=== PATIENT | male | born 1970 | race Caucasian/White ===

== ENCOUNTER 2021-06-14 09:14 | Day surgery (SDC) | payer OTHER ==
[~2021-06-14 09:14] MED LIST: SODIUM CHLORIDE 0.9% 500 ML 500 ML IV ONE
[2021-06-14 09:47] VITALS: RESP 16; TEMP 97.5
[2021-06-14] MEDS: BENZOCAINE SPRAY 1 CAN MUCOUS MEM ONE ×2 (10:37→10:45)
[2021-06-14] MEDS ORDERED: fentaNYL (PF) 50 MCG/ML 2 ML AMP IV ONE (10:45)
[2021-06-14] MEDS ORDERED: MIDAZOLAM 2 MG/2 ML VIAL IV ONE (10:45)
--- NOTE | 2021-06-14 13:12 | ECHOT ---
TRANSESOPHAGEAL ECHOCARDIOGRAM INDICATION: TIA with an abnormal 2D echo. PROCEDURE NOTE: After obtaining informed consent, transesophageal echocardiogram is performed in left lateral position using an Omni plane probe. Local and IV sedation were obtained using 2 mg of Versed and 50 mcg of fentanyl and Xylocaine spray. The patient tolerated the procedure well without any obvious immediate complications. 2D, M-mode, color Doppler and spectral analysis was performed. The patient received moderate conscious sedation. Total sedation time was 8 minutes. FINDINGS: 1. Interatrial septum: There is evidence of jixhm-ub-aoft shunt with agitated saline contrast study. I do not see any evidence of left to right shunt. 2. Left atrium appears mildly enlarged. 3. Right atrium and right ventricle are within normal limits. 4. Left ventricle has normal size and systolic function. 5. Mitral valve shows mild mitral regurgitation. 6. Aortic valve is a 3-leaflet valve. There is no evidence of aortic stenosis or regurgitation. 7. Aortic root appears normal. 8. There is mild tricuspid regurgitation. 9. Left ventricular systolic function is normal. CONCLUSIONS: Evidence of jasuq-ix-oyju shunt with agitated saline contrast study. PLAN: This patient has had recurrent TIAs. I am going to refer him for Amplatzer device closure of the PFO. MMODL / IJN: [id number] /
[2021-06-14 13:24] VITALS: BP 141/84; PULSE 78
--- NOTE | 2021-06-15 08:34 | LTR ---
DATE OF SERVICE: 06/14/2021 Dear Paulie: I performed transesophageal echo on Andre Stnison. A detailed report is enclosed for your records. His NORMA confirms the ryzyu-kw-oscb shunt that was noted on a regular 2D echo. I am going to refer him for PFO closure. Thank you for giving me the privilege of participating in the care of this pleasant gentleman. Sincerely, TOMEKA / JAZMINEN: [id number] /
== END 2021-06-14 11:58 | disposition home or self-care (01) ==
LOC: CATHCVL 09:14
PROVIDERS: ATTEND Internal Medicine Cardiovascular Disease
DX: G45.9 Transient cerebral ischemic attack, unspecified (principal); Z20.822 Contact with and (suspected) exposure to COVID-19
CPT/HCPCS: 93312; 93320; 93325; 87635; J2250; J3010

== ENCOUNTER 2021-06-15 17:06 | Emergency (ER) | payer OTHER ==
[2021-06-15 19:11] VITALS: BP 134/99; TEMP 98.9
[2021-06-15 19:38] LABS: ALT 71 U/L (4-49); AST 48 U/L (17-59); African American GFR (CKD) >90 (>60 ml/min/1.73 sqM); Albumin 4.8 g/dL (3.5-5.0); Alkaline Phosphatase 87 U/L (38-126); Blood Urea Nitrogen 11 mg/dL (9-20); Calcium 10.5 mg/dL (8.4-10.2); Carbon Dioxide 23 mmol/L (22-30); Glucose 103 mg/dL (74-99); Non-African American GFR(CKD) >90 (>60 ml/min/1.73 sqM); Total Bilirubin 0.6 mg/dL (0.2-1.3); Total Protein 8.4 g/dL (6.3-8.2)
[2021-06-15 19:39] LABS: Anion Gap 9 mmol/L; Chloride 106 mmol/L (98-107); Potassium 4.3 mmol/L (3.5-5.1); Sodium 138 mmol/L (137-145)
[2021-06-15 20:10] LABS: Basophils # (A) 0.1 k/uL (0-0.2); Basophils % (A) 1 %; Eosinophils # (A) 0.2 k/uL (0-0.7); Eosinophils % (A) 2 %; HGB 17.9 gm/dL (13.0-17.5); Hyperchromasia Slight; Lymphocytes # (A) 2.5 k/uL (1.0-4.8); Lymphocytes % (A) 26 %; MCH 29.7 pg (25.0-35.0); MCHC 35.1 g/dL (31.0-37.0); MCV 84.5 fL (80.0-100.0); Mean Platelet Volume 7.3; Monocytes # (A) 0.6 k/uL (0-1.0); Monocytes % (A) 6 %; Neutrophils # (A) 5.8 k/uL (1.3-7.7); Neutrophils % (A) 61 %; Platelet Count 240 k/uL (150-450); RBC 6.04 m/uL (4.30-5.90); RDW 13.4 % (11.5-15.5); WBC 9.4 k/uL (3.8-10.6)
[2021-06-15] MEDS ORDERED: ONDANSETRON ODT 4 MG TAB PO STA (21:48)
--- NOTE | 2021-06-15 21:48 | ED ---
General Adult HPI - General Chief complaint: Headache Stated complaint: NORMA yesterday, shaky Time Seen by Provider: 06/15/21 21:21 Source: patient, family Mode of arrival: ambulatory Limitations: physical limitation - History of Present Illness Initial comments: 50-year-old female presents to the emergency department for evaluation of frontal headache, onset this morning. Patient states he had a NORMA yesterday and has felt shaky throughout the day today but was able to go to work. Patient states he is able to tolerate oral intake without difficulty. Denies any nausea or vomiting. States he does have a history of TIAs, but states this pain is di fferent. Patient states the headache begins in his forehead and extends to the top of his scalp and back around to his neck. Denies fever or chills. States he took some Tylenol prior to arrival with no improvement. Patient denies chest pain, shortness of breath, difficulty breathing, abdominal pain, nausea, vomiting, diarrhea, or constipation. - Related Data Home Medications Medication Instructions Recorded Confirmed Aspirin 81 mg PO DAILY 06/07/21 06/15/21 Cholecalciferol [Vitamin D3 (25 25 mcg PO DAILY 06/07/21 06/15/21 Mcg = 1000 Iu)] Multivitamins, Thera [Multivitamin 1 tab PO DAILY 06/07/21 06/15/21 (formulary)] [place]-3 Fatty Acids/Fish Oil [Fish 1 cap PO DAILY 06/07/21 06/15/21 Oil 1,000 mg Softgel] Allergies Allergy/AdvReac Type Severity Reaction Status Date / Time No Known Allergies Allergy Verified 06/15/21 23:09 Review of Systems ROS Statement: Those systems with pertinent positive or pertinent negative responses have been documented in the HPI. ROS Other: All systems not noted in ROS Statement are negative. 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 . SEE [facility] . FATTY LIVER. History of Any Multi-Drug Resistant Organisms: None Reported Past Surgical History: Heart Catheterization, Tonsillectomy Additional Past Surgical History / Comment(s): INFECTED BOWEL "POCKET", HAD OPEN SURGERY TO DRAIN INFECTION. AMPUTATION OF MIDDLE, RING, PINKY OF RIGHT HAND FROM AN WORK ACCIDENT (PRESS0. Additional Past Anesthesia/Blood Transfusion Reaction / Comment(s): WAKES UP DURING SURGERY. Past Psychological History: No Psychological Hx Reported Smoking Status: Never smoker Past Alcohol Use History: Occasional Past Drug Use History: None Reported General Exam Limitations: no limitations (Well-developed, well-nourished male in no acute distress. Initial temperature 98.9, pulse 84, respirations 18, blood pressure 134/99, pulse ox 95% on room air.) General appearance: alert, in no apparent distress Head exam: Present: atraumatic, normocephalic, normal inspection Eye exam: Present: normal appearance, PERRL, EOMI. Absent: scleral icterus, conjunctival injection, periorbital swelling ENT exam: Present: normal exam, normal oropharynx, mucous membranes moist Neck exam: Present: normal inspection, full ROM. Absent: tenderness, meningismus, lymphadenopathy Respiratory exam: Present: normal lung sounds bilaterally. Absent: respiratory distress, wheezes, rales, rhonchi, stridor Cardiovascular Exam: Present: regular rate, normal rhythm, normal heart sounds. Absent: systolic murmur, diastolic murmur, rubs, gallop, clicks GI/Abdominal exam: Present: soft, normal bowel sounds. Absent: distended, tenderness, guarding, rebound, rigid Neurological exam: Present: alert, oriented X3, CN II-XII intact, normal gait, other (No focal neuro deficit. 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 ). Absent: abnormal gait, motor sensory deficit Expanded Patient oriented to: Present: person, place, time Speech: Present: fluid speech Motor strength exam: RUE: 5, LUE: 5, RLE: 5, LLE: 5 Psychiatric exam: Present: normal affect Skin exam: Present: warm, dry, intact, normal color. Absent: rash Course Vital Signs 06/15/21 06/15/21 19:04 23:22 Temperature 98.9 F Pulse Rate 84 75 Respiratory 18 16 Rate Blood Pressure 134/99 O2 Sat by Pulse 95 95 Oximetry Medical Decision Making - Medical Decision Making This is a 50-year-old male with a history of TIAs who presents to the emergency department for treatment of headache area patient states he had a NORMA yesterday and has been struggling with a headache since. Upon exam, patient is neurologically intact with no focal deficits. Reports feeling shaky though is able to ambulate without difficulty and is well coordinated. Laboratory studies were reviewed and were unremarkable. Options for treatment were discussed, patient prefers to avoid an IV and further imaging if possible. Patient was given oral Zofran, intramuscular Benadryl and Toradol for headache discomfort. Reports improvement and readiness for discharge. He will be discharged home to follow up with his primary care provider who is very familiar with his history. Return parameters were discussed in detail. Patient verbalizes understanding and agrees with this plan. This patient's care was discussed with my attending Dr. Galdamez. - Lab Data Result diagrams: 06/15/21 19:16 06/15/21 19:16 Lab Results 06/15/21 06/15/21 Range/Units 19:16 19:16 WBC 9.4 (3.8-10.6) k/uL RBC 6.04 H (4.30-5.90) m/uL Hgb 17.9 H (13.0-17.5) gm/dL Hct 51.0 (39.0-53.0) % MCV 84.5 (80.0-100.0) fL MCH 29.7 (25.0-35.0) pg MCHC 35.1 (31.0-37.0) g/dL RDW 13.4 (11.5-15.5) % Plt Count 240 (150-450) k/uL MPV 7.3 Neutrophils % 61 % Lymphocytes % 26 % Monocytes % 6 % Eosinophils % 2 % Basophils % 1 % Neutrophils # 5.8 (1.3-7.7) k/uL Lymphocytes # 2.5 (1.0-4.8) k/uL Monocytes # 0.6 (0-1.0) k/uL Eosinophils # 0.2 (0-0.7) k/uL Basophils # 0.1 (0-0.2) k/uL Hyperchromasia Slight Sodium 138 (137-145) mmol/L Potassium 4.3 (3.5-5.1) mmol/L Chloride 106 (98-107) mmol/L Carbon Dioxide 23 (22-30) mmol/L Anion Gap 9 mmol/L BUN 11 (9-20) mg/dL Creatinine 0.86 (0.66-1.25) mg/dL Est GFR (CKD-EPI)AfAm >90 (>60 ml/min/1.73 sqM) Est GFR (CKD-EPI)NonAf >90 (>60 ml/min/1.73 sqM) Glucose 103 H (74-99) mg/dL Calcium 10.5 H (8.4-10.2) mg/dL Total Bilirubin 0.6 (0.2-1.3) mg/dL AST 48 (17-59) U/L ALT 71 H (4-49) U/L Alkaline Phosphatase 87 (38-126) U/L Total Protein 8.4 H (6.3-8.2) g/dL Albumin 4.8 (3.5-5.0) g/dL Disposition Clinical Impression: Headache Disposition: HOME SELF-CARE Condition: Stable Instructions (If sedation given, give patient instructions): Acute Headache (ED) Additional Instructions: Rest as needed. May take Tylenol or Motrin as needed for pain. Follow-up with your PCP for a recheck in the next 24-48 hours. Return to the emergency department with any new, worsening, or concerning symptoms. Is patient prescribed a controlled substance at d/c from ED?: No Referrals: Paulie Alexandra MD [Primary Care Provider] - 1-2 days Time of Disposition: 23:16
[2021-06-15] MEDS ORDERED: KETOROLAC 30 MG/ML 1 ML VIAL IM STA (21:49)
[2021-06-15] MEDS ORDERED: diphenhydrAMINE 50 MG/ML 1 ML VIAL IVP STA (21:49)
[2021-06-15] MEDS ORDERED: diphenhydrAMINE 50 MG/ML 1 ML VIAL IM STA (22:16)
[2021-06-15 23:24] VITALS: PULSE 75; RESP 16
== END 2021-06-15 23:24 | disposition home or self-care (01) ==
LOC: EC 17:06
DX: R51.9 Headache, unspecified (principal); Z79.82 Long term (current) use of aspirin
CPT/HCPCS: 36415; 80053; 85025; 99284; 96372 ×2; J1200; J1885

== ENCOUNTER 2022-12-19 13:19 | Observation (INO) | payer OTHER ==
--- NOTE | 2022-12-19 14:46 | ED ---
General Adult HPI - General Chief complaint: Chest Pain Stated complaint: SOB nausea Time Seen by Provider: 12/19/22 14:13 Source: patient Mode of arrival: ambulatory Limitations: no limitations - History of Present Illness Initial comments: Dictation was produced using [employer] dictation software. please excuse any grammatical, word or spelling errors. Chief Complaint: 52-year-old male past medical history of PFO, recently diagnosed type for cholesterolemia presents to the ER for fatigue, exertional cramping, diaphoresis History of Present Illness: She is 52-year-old male was recently diagnosed with high cholesterol. Is also told by his primary care doctor the high calcium. Patient works in the [employer] business. He was at work today trying to perform his usual activities at work. States that he felt so fatigued retrying them. He also reports lsignificant cramping throughout his whole body. Patient recently started cholesterol medications. Does report some mild chest pressure that radiates to his left jaw. The ROS documented in this emergency department record has been reviewed and confirmed by me. Those systems with pertinent positive or negative responses have been documented in the HPI. All other systems are other negative and/or noncontributory. - Related Data Home Medications Medication Instructions Recorded Confirmed [place]-3 Fatty Acids/Fish Oil [Fish 1 cap PO DAILY 06/07/21 12/19/22 Oil 1,000 mg Softgel] Multivit-Min/FA/Lycopen/Lutein 1 tab PO DAILY 12/19/22 12/19/22 [Centrum Silver Men Tablet] Rosuvastatin [Crestor] 10 mg PO HS 12/19/22 12/19/22 Topiramate [Topamax] 25 mg PO HS 12/19/22 12/19/22 Vitamin D3 350mcg 350 mcg PO DAILY 12/19/22 12/19/22 methylPREDNISolone Dose Pack See Taper PO DIRECTED 12/19/22 12/19/22 [Medrol Dose Pack] Allergies Allergy/AdvReac Type Severity Reaction Status Date / Time No Known Allergies Allergy Verified 12/19/22 15:15 Review of Systems ROS Statement: Those systems with pertinent positive or pertinent negative responses have been documented in the HPI. ROS Other: All systems not noted in ROS Statement are negative. 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 . SEE [facility] HX. FATTY LIVER. History of Any Multi-Drug Resistant Organisms: None Reported Past Surgical History: Heart Catheterization, Tonsillectomy Additional Past Surgical History / Comment(s): INFECTED BOWEL "POCKET", HAD OPEN SURGERY TO DRAIN INFECTION. AMPUTATION OF MIDDLE, RING, PINKY OF RIGHT HAND FROM AN WORK ACCIDENT (PRESS0. Additional Past Anesthesia/Blood Transfusion Reaction / Comment(s): WAKES UP DURING SURGERY. Past Psychological History: No Psychological Hx Reported Smoking Status: Never smoker Past Alcohol Use History: Occasional Past Drug Use History: None Reported General Exam - General Exam Comments Initial Comments: PHYSICAL EXAM: General Impression: Alert and oriented x3, not in acute distress HEENT: Normocephalic atraumatic, extra-ocular movements intact, pupils equal and reactive to light bilaterally, mucous membranes moist. Cardiovascular: Heart regular rate and rhythm Chest: Able to complete full sentences, no retractions, no tachypnea Abdomen: abdomen soft, non-tender, non-distended, no organomegaly Musculoskeletal: Pulses present and equal in all extremities, no peripheral edema Motor: no focal deficits noted Neurological: CN II-XII grossly intact, no focal motor or sensory deficits noted Skin: Intact with no visualized rashes Psych: Normal affect and mood Limitations: no limitations Course Vital Signs 12/19/22 12/19/22 12/19/22 13:22 14:03 15:22 Temperature 98.7 F Pulse Rate 94 98 76 Respiratory 18 20 18 Rate Blood Pressure 129/73 142/121 134/71 O2 Sat by Pulse 95 97 97 Oximetry 12/19/22 16:03 Temperature Pulse Rate 70 Respiratory 18 Rate Blood Pressure 134/91 O2 Sat by Pulse 97 Oximetry EKG Findings - EKG Comments: EKG Findings:: My EKG interpretation: Ventricular rate 95, sinus rhythm, RI 177, QRS 105, QTC 390. No RI prolongation, no QTC prolongation, no ST or T-wave changes noted. Overall, this EKG is unremarkable Medical Decision Making - Medical Decision Making Was pt. sent in by a medical professional or institution (, PA, CERAMIC TILER, urgent care, hospital, or jail...) When possible be specific @ -No Did you speak to anyone other than the patient for history (EMS, parent, family, police, friend...)? What history was obtained from this source @ - at the bedside reports that patient has not been himself his exercise tolerance has diminished significantly over a short amount Did you review nursing and triage notes (agree or disagree)? Why? @ -I reviewed and agree with nursing and triage notes Were old charts reviewed (outside hosp., previous admission, EMS record, old EKG, old radiological studies, urgent care reports/EKG's, jail records)? Report findings @ -Patient had a NORMA performed to 2020 showing patent foramen ovale. At that time there was overall normal systolic function Differential Diagnosis (chest pain, altered mental status, abdominal pain women, abdominal pain men, vaginal bleeding, musculoskeletal, weakness, fever, dyspnea, syncope, headache, dizziness, GI bleed, back pain, seizure, CVA, palpatations, mental health)? @ -Differential Chest Pain: Stable Angina, Unstable Angina, STEMI, NSTEMI Aortic Dissection, Pneumothorax, Musculoskeletal, Esophageal Spasm GERD, Cholecystitis, Pancreatitis, Zoster, this is not meant to be an all-inclusive list. EKG interpreted by me (3pts min.). @ -See above X-rays interpreted by me (1pt min.). @ -Two-view chest x-ray shows no acute processes CT interpreted by me (1pt min.). @ -None done U/S interpreted by me (1pt. min.). @ -None done What testing was considered but not performed or refused? (CT, X-rays, U/S, labs)? Why? @ -None What meds were considered but not given or refused? Why? @ -None Did you discuss the management of the patient with other professionals (professionals i.e. , PA, CERAMIC TILER, lab, RT, psych nurse, child protective services social worker, contract writer, teacher, science and operations officer, nurse case management)? Give summary @ -Labs imaging clinical presentation discussed with Dr. Brennan for admission Was smoking cessation discussed for >3mins.? @ -No Was critical care preformed (if so, how long)? @ -No Were there social determinants of health that impacted care today? How? (Homelessness, low income, unemployed, alcoholism, drug addiction, transportation, low edu. Level, literacy, decrease access to med. care, skilled nursing, rehab)? @ -No Was there de-escalation of care discussed even if they declined (Discuss DNR or withdrawal of care, Hospice)? DNR status @ -No What co-morbidities impacted this encounter? (DM, HTN, Smoking, COPD, CAD, Cancer, CVA, ARF, Chemo, Hep., AIDS, mental health diagnosis, sleep apnea, morbid obesity)? @ -None Was patient admitted / discharged? Hospital course, mention meds given and route, prescriptions, significant lab abnormalities, going to OR and other pertinent info. @ -52-year-old male presents emergency department with chest pressure, poor exercise intolerance and overall worsening fatigue. He has extensive family history of cardiac disease. Vital signs are stable. EKG shows no signs of ischemia infarction. Labs shows acidosis with a bicarb of 17. No clear and obvious cause. Rest of labs within acceptable limits. Patient has atypical chest pain typical features. Patient given IV fluids will be admitted for cardiac monitoring further care. She given IV hydration. Undiagnosed new problem with uncertain prognosis? @ -No Drug Therapy requiring intensive monitoring for toxicity (Heparin, Nitro, Insulin, Cardizem)? @ -No Were any procedures done? @ -No Diagnosis/symptom? Acute, or Chronic, or Acute on Chronic? Uncomplicated (without systemic symptoms) or Complicated (systemic symptoms)? @ -1. Chest pain, 2. Exertional fatigue Side effects of treatment? @ -No Exacerbation, Progression, or Severe Exacerbation? @ -No Poses a threat to life or bodily function? How? (Chest pain, USA, AL, pneumonia, PE, COPD, DKA, ARF, appy, cholecystitis, CVA, Diverticulitis, Homicidal, Suicidal, threat to staff... and all critical care pts) @ -yes - Lab Data Result diagrams: 12/19/22 14:55 12/19/22 14:55 Lab Results 12/19/22 12/19/22 12/19/22 Range/Units 14:55 14:55 14:55 WBC 7.8 (3.8-10.6) k/uL RBC 5.95 H (4.30-5.90) m/uL Hgb 17.3 (13.0-17.5) gm/dL Hct 50.5 (39.0-53.0) % MCV 84.8 (80.0-100.0) fL MCH 29.2 (25.0-35.0) pg MCHC 34.4 (31.0-37.0) g/dL RDW 12.8 (11.5-15.5) % Plt Count 261 (150-450) k/uL MPV 8.0 Neutrophils % 88 % Lymphocytes % 8 % Monocytes % 3 % Eosinophils % 0 % Basophils % 0 % Neutrophils # 6.8 (1.3-7.7) k/uL Lymphocytes # 0.6 L (1.0-4.8) k/uL Monocytes # 0.3 (0-1.0) k/uL Eosinophils # 0.0 (0-0.7) k/uL Basophils # 0.0 (0-0.2) k/uL PT 10.4 (9.0-12.0) sec INR 1.0 (<1.2) APTT 24.5 (22.0-30.0) sec Sodium 140 (137-145) mmol/L Potassium 4.5 (3.5-5.1) mmol/L Chloride 108 H (98-107) mmol/L Carbon Dioxide 17 L (22-30) mmol/L Anion Gap 15 mmol/L BUN 11 (9-20) mg/dL Creatinine 0.84 (0.66-1.25) mg/dL Est GFR (CKD-EPI)AfAm >90 (>60 ml/min/1.73 sqM) Est GFR (CKD-EPI)NonAf >90 (>60 ml/min/1.73 sqM) Glucose 121 H (74-99) mg/dL Calcium 10.1 (8.4-10.2) mg/dL Ionized Calcium Irina 5.4 H (4.5-5.3) mg/dL Magnesium 2.2 (1.6-2.3) mg/dL Total Bilirubin 1.2 (0.2-1.3) mg/dL AST 38 (17-59) U/L ALT 42 (4-49) U/L Alkaline Phosphatase 110 (38-126) U/L Creatine Kinase 197 H (55-170) U/L Troponin I (0.000-0.034) ng/mL Total Protein 8.6 H (6.3-8.2) g/dL Albumin 4.9 (3.5-5.0) g/dL 12/19/22 Range/Units 14:55 WBC (3.8-10.6) k/uL RBC (4.30-5.90) m/uL Hgb (13.0-17.5) gm/dL Hct (39.0-53.0) % MCV (80.0-100.0) fL MCH (25.0-35.0) pg MCHC (31.0-37.0) g/dL RDW (11.5-15.5) % Plt Count (150-450) k/uL MPV Neutrophils % % Lymphocytes % % Monocytes % % Eosinophils % % Basophils % % Neutrophils # (1.3-7.7) k/uL Lymphocytes # (1.0-4.8) k/uL Monocytes # (0-1.0) k/uL Eosinophils # (0-0.7) k/uL Basophils # (0-0.2) k/uL PT (9.0-12.0) sec INR (<1.2) APTT (22.0-30.0) sec Sodium (137-145) mmol/L Potassium (3.5-5.1) mmol/L Chloride (98-107) mmol/L Carbon Dioxide (22-30) mmol/L Anion Gap mmol/L BUN (9-20) mg/dL Creatinine (0.66-1.25) mg/dL Est GFR (CKD-EPI)AfAm (>60 ml/min/1.73 sqM) Est GFR (CKD-EPI)NonAf (>60 ml/min/1.73 sqM) Glucose (74-99) mg/dL Calcium (8.4-10.2) mg/dL Ionized Calcium Irina (4.5-5.3) mg/dL Magnesium (1.6-2.3) mg/dL Total Bilirubin (0.2-1.3) mg/dL AST (17-59) U/L ALT (4-49) U/L Alkaline Phosphatase (38-126) U/L Creatine Kinase (55-170) U/L Troponin I <0.012 (0.000-0.034) ng/mL Total Protein (6.3-8.2) g/dL Albumin (3.5-5.0) g/dL Disposition Clinical Impression: Chest pain Disposition: ADMITTED IP TO THIS HOSP Condition: Fair Referrals: Paulie Alexandra MD [Primary Care Provider] - 1-2 days Decision Time: 16:05
[2022-12-19] MEDS: SODIUM CHLORIDE 0.9% 1,000 ML IV STA ×2 (14:52→15:20)
--- NOTE | 2022-12-19 15:07 | XR ---
EXAMINATION TYPE: XR chest 2V DATE OF EXAM: 12/19/2022 3:00 PM COMPARISON: None TECHNIQUE: XR chest 2V Frontal and lateral views of the chest. CLINICAL INDICATION:Male, 52 years old with history of Chest Pain; FINDINGS: Lungs/Pleura: There is no evidence of pleural effusion, focal consolidation, or pneumothorax. Pulmonary vascularity: Unremarkable. Heart/mediastinum: Cardiomediastinal silhouette is unremarkable. Musculoskeletal: No acute osseous pathology. IMPRESSION: No acute cardiopulmonary disease/process.
[2022-12-19] MEDS ORDERED: KETOROLAC 15 MG/ML 1 ML VIAL IVP STA (15:16)
[2022-12-19] MEDS ORDERED: SODIUM CHLORIDE 0.9% 1,000 ML IV STA (15:16)
[2022-12-19 15:25] LABS: Basophils % (A) 0 %; Eosinophils % (A) 0 %; HCT 50.5 % (39.0-53.0); HGB 17.3 gm/dL (13.0-17.5); Ionized Calcium 5.4 mg/dL (4.5-5.3); Lymphocytes # (A) 0.6 k/uL (1.0-4.8); Lymphocytes % (A) 8 %; MCH 29.2 pg (25.0-35.0); MCHC 34.4 g/dL (31.0-37.0); MCV 84.8 fL (80.0-100.0); Monocytes # (A) 0.3 k/uL (0-1.0); Monocytes % (A) 3 %; Neutrophils # (A) 6.8 k/uL (1.3-7.7); Neutrophils % (A) 88 %; Platelet Count 261 k/uL (150-450); RBC 5.95 m/uL (4.30-5.90); RDW 12.8 % (11.5-15.5); WBC 7.8 k/uL (3.8-10.6)
[2022-12-19 15:38] LABS: Partial Thromboplastin Time 24.5 sec (22.0-30.0); Prothrombin Time 10.4 sec (9.0-12.0)
[2022-12-19 15:40] LABS: ALT 42 U/L (4-49); AST 38 U/L (17-59); African American GFR (CKD) >90 (>60 ml/min/1.73 sqM); Albumin 4.9 g/dL (3.5-5.0); Alkaline Phosphatase 110 U/L (38-126); Anion Gap 15 mmol/L; Blood Urea Nitrogen 11 mg/dL (9-20); Calcium 10.1 mg/dL (8.4-10.2); Carbon Dioxide 17 mmol/L (22-30); Chloride 108 mmol/L (98-107); Creatine Kinase 197 U/L (55-170); Glucose 121 mg/dL (74-99); Magnesium 2.2 mg/dL (1.6-2.3); Non-African American GFR(CKD) >90 (>60 ml/min/1.73 sqM); Potassium 4.5 mmol/L (3.5-5.1); Sodium 140 mmol/L (137-145); Total Bilirubin 1.2 mg/dL (0.2-1.3); Total Protein 8.6 g/dL (6.3-8.2)
[2022-12-19] MEDS ORDERED: ASPIRIN 81 MG PO STA (16:01)
[2022-12-19] MEDS ORDERED: NITROGLYCERIN SL TABS 0.4 MG TAB SUBLINGUAL PRN (16:05)
[2022-12-19] MEDS ORDERED: NALOXONE 0.4 MG/ML 1 ML VIAL IV PRN (17:05)
[2022-12-19] MEDS ORDERED: MELATONIN 3 MG TABLET PO PRN (17:10)
[2022-12-19] MEDS ORDERED: bisacodyL 5 MG TABLET.DR PO PRN (17:10)
[2022-12-19] MEDS ORDERED: ACETAMINOPHEN TAB 325 MG TAB PO PRN (17:10)
[2022-12-19] MEDS ORDERED: ONDANSETRON 4 MG/2 ML VIAL IVP PRN (17:10)
[2022-12-19] MEDS ORDERED: CALCIUM CARBONATE 500 MG CHEWABLE PO PRN (17:10)
--- NOTE | 2022-12-19 17:17 | P.HPIM ---
History of Present Illness H&P Date: 12/19/22 Chief Complaint: chest pain Patient is a 52-year-old male with a history of prior TIA, PFO, and steatohepatitis who presented to the ER with complaints of shortness of breath and fatigue. On arrival to the ER his vitals are within normal limits. Laboratory analysis was remarkable for carbon dioxide of 17 and anion gap of 15. Troponin was negative at less than 0.012. Chest x-ray is read as no acute process. EKG revealed no signs of acute ischemia. In the ER he was given a dose of Toradol, 2 L normal saline, and aspirin. Arrangements are made for admission. Patient was recently diagnosied by his PCP with high cholesterol and high calcium levels. Patient seen and examined at bedside. Has not felt right the last few months- fatigue and aches and pains. Has lost 11 pounds in the last month due to decreased appetite. Saw Dr. Parisi on Monday and with his calcium being high they wanted him to see if there was calcium around his heart.He was recently started on crestor last week. Today at work started having pain in cramping left shoulder pain at 6-8 that radiated to the jaw, increased fatigue, SOB, diaphoresis, vomited X 1 at work. Did not eat much at work. Works a physically active job. Last few days increased thirst. He has had this shoulder/chest discomfort intermittently for the last 8 months however today was much worse. Has been having lower extremity edema for the last 3-4 months. Neck circumference is 19.5. Complaining of a headache today. Had an episode of presyncope about 2-3 weeks ago-- tunneled vision, light headed. Had NORMA done on 06/14/21 which showed PFO with no left to right shunt. Has seen Dr. Mirza and Derick in the past. No hx of tobacco abuse, social drinker, no history of street drug use. Had a heart cath> 10 years ago at [facility]. Family Hx Mom- Heart Failure Dad- ND X 5-6, ablation- first ND at age 41. , pacer/ defibrillator Grandfather- CABG Vital signs reviewed General: nontoxic, no distress, appears at stated age Derm: warm, dry Eyes: EOMI, no lid lag, anicteric sclera, pupils equal round reactive to light ENT: Nose and ears atraumatic, no thrush, no pharyngeal erythema Cardiovascular: S1S2 reg, no murmur, positive posterior tibial pulse bilateral, 1+ non pitting edema b/l LE, capillary refill less than 2 seconds Lungs: clear to auscultation bilateral, no rhonchi, no rales, no wheeze, no accessory muscle use Abdominal: soft, nontender to palpation, no guarding, no appreciable organomegaly, normal bowel sounds Ext: no gross muscle atrophy, , no contractures Neuro: CN II-XII grossly intact, no focal neuro deficits, finger to nose within normal limits, Psych: Alert, oriented, appropriate affect Assessment: Chest pain Fatigue PFO without right to left shunt Hypercalcemia Metabolic acidosis HLD Imaging: Chest x-ray reviewed by myself shows increased interstitial markings EKG is reviewed by myself reveals normal sinus rhythm at a rate of 95, left axis deviation, LVH, normal intervals, and no significant ST-T wave changes Data Review: As above in HPI Plan: - place in observation - Trend troponin - ASA, Statin - if another episode of chest pain or elevated troponin will need heparin gtt - Resume topamax - Cardio consult - NPO after midnight - Tele - Echo in AM - Repeat BMP and ionized calcium in AM - if cardiac work-up is negative consider outpatient sleep study and pulmonary referal. The patient is admitted with an anticipated greater than 2 midnight stay for evaluation of [chest pain and fatigue ]. Surrogate decision-maker: CODE STATUS:full DVT prophylaxis: SCDs Discussed with: patient Anticipated discharge date: pending clinical course Anticipated discharge place: home This dictation was prepared using [employer] voice recognition software. Though every attempt is made to correct errors during during dictation some may still exist. Past Medical History Past Medical History: CVA/TIA Additional Past Medical History / Comment(s): PFO, TIA in his 30s, Splenomegally. FATTY LIVER. History of Any Multi-Drug Resistant Organisms: None Reported Past Surgical History: Heart Catheterization, Tonsillectomy Additional Past Surgical History / Comment(s): INFECTED BOWEL "POCKET", HAD OPEN SURGERY TO DRAIN INFECTION. AMPUTATION OF MIDDLE, RING, PINKY OF RIGHT HAND FROM AN WORK ACCIDENT, NORMA Additional Past Anesthesia/Blood Transfusion Reaction / Comment(s): WAKES UP DURING SURGERY. Past Psychological History: No Psychological Hx Reported Smoking Status: Never smoker Past Alcohol Use History: Occasional Past Drug Use History: None Reported Medications and Allergies Home Medications Medication Instructions Recorded Confirmed Type [place]-3 Fatty Acids/Fish Oil [Fish 1 cap PO DAILY 06/07/21 12/19/22 History Oil 1,000 mg Softgel] Multivit-Min/FA/Lycopen/Lutein 1 tab PO DAILY 12/19/22 12/19/22 History [Centrum Silver Men Tablet] Rosuvastatin [Crestor] 10 mg PO HS 12/19/22 12/19/22 History Topiramate [Topamax] 25 mg PO HS 12/19/22 12/19/22 History Vitamin D3 350mcg 350 mcg PO DAILY 12/19/22 12/19/22 History methylPREDNISolone Dose Pack See Taper PO DIRECTED 12/19/22 12/19/22 History [Medrol Dose Pack] Allergies Allergy/AdvReac Type Severity Reaction Status Date / Time No Known Allergies Allergy Verified 12/19/22 15:15 Physical Exam Osteopathic Statement: *. No significant issues noted on an osteopathic structural exam other than those noted in the History and Physical/Consult. Vitals: Vital Signs Temp Pulse Resp BP Pulse Ox 12/19/22 16:03 70 18 134/91 97 12/19/22 15:22 76 18 134/71 97 12/19/22 14:03 98 20 142/121 97 12/19/22 13:22 98.7 F 94 18 129/73 95 Intake and Output 12/19/22 12/19/22 12/19/22 06:59 14:59 22:59 Other: Weight 108.862 kg Results CBC & Chem 7: 12/19/22 14:55 12/19/22 14:55 Labs: Abnormal Lab Results - Last 24 Hours (Table) 12/19/22 12/19/22 Range/Units 14:55 14:55 RBC 5.95 H (4.30-5.90) m/uL Lymphocytes # 0.6 L (1.0-4.8) k/uL Chloride 108 H (98-107) mmol/L Carbon Dioxide 17 L (22-30) mmol/L Glucose 121 H (74-99) mg/dL Ionized Calcium Irina 5.4 H (4.5-5.3) mg/dL Creatine Kinase 197 H (55-170) U/L Total Protein 8.6 H (6.3-8.2) g/dL
[2022-12-19] MEDS: SODIUM CHLORIDE 0.9% 1,000 ML IV SCH (18:31)
[2022-12-19] MEDS ORDERED: KETOROLAC 15 MG/ML 1 ML VIAL IVP PRN (18:42)
[2022-12-19] MEDS: BUTALB/APAP/CAFF 50-325-40MG TAB PO PRN (19:10)
[2022-12-19] MEDS: TOPIRAMATE 25 MG TAB PO SCH (20:08)
[2022-12-19] MEDS: ATORVASTATIN 20 MG TAB PO SCH (20:08)
[2022-12-20] MEDS: SODIUM CHLORIDE 0.9% 1,000 ML IV SCH ×3 (02:14→23:01)
[2022-12-20 07:26] LABS: Basophils % (A) 1 %; Eosinophils # (A) 0.2 k/uL (0-0.7); Eosinophils % (A) 2 %; HCT 45.9 % (39.0-53.0); HGB 15.5 gm/dL (13.0-17.5); Lymphocytes # (A) 1.7 k/uL (1.0-4.8); Lymphocytes % (A) 24 %; MCH 28.9 pg (25.0-35.0); MCHC 33.7 g/dL (31.0-37.0); MCV 85.7 fL (80.0-100.0); Mean Platelet Volume 7.4; Monocytes # (A) 0.7 k/uL (0-1.0); Monocytes % (A) 9 %; Neutrophils # (A) 4.6 k/uL (1.3-7.7); Neutrophils % (A) 63 %; Platelet Count 219 k/uL (150-450); RBC 5.35 m/uL (4.30-5.90); RDW 13.1 % (11.5-15.5); WBC 7.3 k/uL (3.8-10.6)
--- NOTE | 2022-12-20 07:42 | P.CRDCN ---
History of Present Illness Consult date: 12/20/22 Chief complaint: chest pain History of present illness: The patient is a very pleasant 52-year-old gentleman with a past medical history significant for history of TIA as well as dyslipidemia presented to the hospital complaining of chest discomfort. He describes discomfort in the left upper chest as well as the jaw. The discomfort appeared to be nonexertional. Beside that he has been more short of breath recently. No dizziness or lightheadedness and no feeling of heart racing or fluttering and no presyncope or syncope. No history of ischemic heart disease or prior revascularization. He does have severe dyslipidemia and he also was diagnosed with TIA before. He underwent further cardiac workup including EKG showing sinus mechanism was no significant ST or T-wave abnormalities and also he underwent a blood work including troponin came in to be unremarkable. He is known to have also a patent foramen ovale was treated medically and he has done well since then. The chest x-ray showed no acute abnormalities The examination is remarkable for stable vital signs with regular rhythm and clear breathing sounds bilaterally and no carotid bruit and no lower extremity edema noted Assessment Atypical chest discomfort History of TIA Dyslipidemia Plan Acute coronary event was ruled out Continue the current medical regimen Obtain a stress test to rule out severe CAD given his multiple risk factors Follow-up with the patient Past Medical History Past Medical History: CVA/TIA Additional Past Medical History / Comment(s): PFO, TIA in his 30s, Splenomegally. FATTY LIVER. History of Any Multi-Drug Resistant Organisms: None Reported Past Surgical History: Heart Catheterization, Tonsillectomy Additional Past Surgical History / Comment(s): INFECTED BOWEL "POCKET", HAD OPEN SURGERY TO DRAIN INFECTION. AMPUTATION OF MIDDLE, RING, PINKY OF RIGHT HAND FROM AN WORK ACCIDENT, NORMA Additional Past Anesthesia/Blood Transfusion Reaction / Comment(s): WAKES UP DURING SURGERY. Past Psychological History: No Psychological Hx Reported Smoking Status: Never smoker Past Alcohol Use History: Occasional Past Drug Use History: None Reported Medications and Allergies Home Medications Medication Instructions Recorded Confirmed Type [place]-3 Fatty Acids/Fish Oil [Fish 1 cap PO DAILY 06/07/21 12/19/22 History Oil 1,000 mg Softgel] Multivit-Min/FA/Lycopen/Lutein 1 tab PO DAILY 12/19/22 12/19/22 History [Centrum Silver Men Tablet] Rosuvastatin [Crestor] 10 mg PO HS 12/19/22 12/19/22 History Topiramate [Topamax] 25 mg PO HS 12/19/22 12/19/22 History Vitamin D3 350mcg 350 mcg PO DAILY 12/19/22 12/19/22 History methylPREDNISolone Dose Pack See Taper PO DIRECTED 12/19/22 12/19/22 History [Medrol Dose Pack] Allergies Allergy/AdvReac Type Severity Reaction Status Date / Time No Known Allergies Allergy Verified 12/19/22 15:15 Physical Exam Vitals: Vital Signs Temp Pulse Pulse Resp BP BP Pulse Ox 12/20/22 02:00 98.1 F 67 13 141/79 98 12/19/22 21:00 97.6 F 61 18 149/90 97 12/19/22 20:50 18 12/19/22 20:23 98.5 F 12/19/22 20:10 63 18 120/85 97 12/19/22 17:48 65 18 136/86 99 12/19/22 16:03 70 18 134/91 97 12/19/22 15:22 76 18 134/71 97 12/19/22 14:03 98 20 142/121 97 12/19/22 13:22 98.7 F 94 18 129/73 95 Intake and Output 12/19/22 12/20/22 12/20/22 22:59 06:59 14:59 Output Total 0 Balance 0 Output: Emesis 0 Other: # Voids 1 Weight 108.862 kg Results 12/20/22 06:55 12/19/22 14:55 Cardiac Enzymes 12/19/22 12/19/22 12/19/22 Range/Units 14:55 14:55 17:50 AST 38 (17-59) U/L Troponin I <0.012 <0.012 (0.000-0.034) ng/mL 12/19/22 Range/Units 20:51 AST (17-59) U/L Troponin I <0.012 (0.000-0.034) ng/mL Coagulation 12/19/22 Range/Units 14:55 PT 10.4 (9.0-12.0) sec APTT 24.5 (22.0-30.0) sec CBC 12/19/22 12/20/22 Range/Units 14:55 06:55 WBC 7.8 7.3 (3.8-10.6) k/uL RBC 5.95 H 5.35 (4.30-5.90) m/uL Hgb 17.3 15.5 (13.0-17.5) gm/dL Hct 50.5 45.9 (39.0-53.0) % Plt Count 261 219 (150-450) k/uL Comprehensive Metabolic Panel 12/19/22 Range/Units 14:55 Sodium 140 (137-145) mmol/L Potassium 4.5 (3.5-5.1) mmol/L Chloride 108 H (98-107) mmol/L Carbon Dioxide 17 L (22-30) mmol/L BUN 11 (9-20) mg/dL Creatinine 0.84 (0.66-1.25) mg/dL Glucose 121 H (74-99) mg/dL Calcium 10.1 (8.4-10.2) mg/dL AST 38 (17-59) U/L ALT 42 (4-49) U/L Alkaline Phosphatase 110 (38-126) U/L Total Protein 8.6 H (6.3-8.2) g/dL Albumin 4.9 (3.5-5.0) g/dL Current Medications Generic Name Dose Route Start Last Admin Trade Name Freq PRN Reason Stop Dose Admin Acetaminophen 650 mg 12/19/22 17:10 Acetaminophen Tab 325 Mg Tab PO Q6HR PRN Mild Pain or Fever > 100.5 Acetaminophen/Butalbital/Caffeine 1 each 12/19/22 18:41 12/19/22 19:10 Butalb/Apap/Caff 50-325-40mg Tab PO 1 each Q6H PRN Administration Headache Aspirin 325 mg 12/20/22 09:00 Aspirin 325 Mg Tab PO DAILY REKHA Atorvastatin Calcium 20 mg 12/19/22 21:00 12/19/22 20:08 Atorvastatin 20 Mg Tab PO 20 mg HS REKHA Administration Bisacodyl 5 mg 12/19/22 17:10 Bisacodyl 5 Mg Tablet.Dr PO DAILY PRN Constipation Calcium Carbonate/Glycine 1,000 mg 12/19/22 17:10 Calcium Carbonate 500 Mg Chewable PO Q4HR PRN Dyspepsia Sodium Chloride 1,000 mls @ 100 mls/hr 12/19/22 17:15 12/20/22 02:14 Saline 0.9% IV 100 mls/hr .Q10H REKHA Administration Ketorolac Tromethamine 15 mg 12/19/22 18:42 Ketorolac 15 Mg/Ml 1 Ml Vial IVP 12/24/22 18:42 Q6HR PRN Breakthrough Pain Melatonin 3 mg 12/19/22 17:10 Melatonin 3 Mg Tablet PO HS PRN Insomnia Naloxone HCl 0.2 mg 12/19/22 17:05 Naloxone 0.4 Mg/Ml 1 Ml Vial IV Q2M PRN Opioid Reversal Nitroglycerin 0.4 mg 12/19/22 16:05 Nitroglycerin Sl Tabs 0.4 Mg Tab SUBLINGUAL Q5M PRN Chest Pain Ondansetron HCl 4 mg 12/19/22 17:10 Ondansetron 4 Mg/2 Ml Vial IVP Q8HR PRN Nausea And Vomiting Topiramate 25 mg 12/19/22 21:00 12/19/22 20:08 Topiramate 25 Mg Tab PO 25 mg HS REKHA Administration Intake and Output 12/19/22 12/20/22 12/20/22 22:59 06:59 14:59 Output Total 0 Balance 0 Output: Emesis 0 Other: # Voids 1 Weight 108.862 kg 12/20/22 06:55 12/19/22 14:55
[2022-12-20 07:43] LABS: African American GFR (CKD) >90 (>60 ml/min/1.73 sqM); Anion Gap 6 mmol/L; Blood Urea Nitrogen 12 mg/dL (9-20); Calcium 8.7 mg/dL (8.4-10.2); Carbon Dioxide 23 mmol/L (22-30); Chloride 111 mmol/L (98-107); Glucose 96 mg/dL (74-99); Non-African American GFR(CKD) >90 (>60 ml/min/1.73 sqM); Potassium 3.9 mmol/L (3.5-5.1); Sodium 140 mmol/L (137-145)
[2022-12-20 08:58] LABS: Ionized Calcium 5.3 mg/dL (4.5-5.3)
[2022-12-20] MEDS ORDERED: NON FORMULARY DRUG (Omega-3 Fatty Acids/Fish Oil [Fish Oil 1,000 Mg Softgel] 1 EACH Capsul PO SCH (09:00)
[2022-12-20] MEDS ORDERED: ASPIRIN 325 MG TAB PO SCH (09:00)
--- NOTE | 2022-12-20 10:37 | CA ---
Transthoracic Echo Report Name: Andre Stinson Age: 52 Gender: M : 1970 Exam Date: 12/20/2022 07:42 Exam Location: [facility] Ht (in): 71 Wt (lb): 240 Ordering Physician: Nicolette Keith DO Attending/Referring Phys: [id number], [employer]ist Ansley Jones RDCS Procedure CPT: Indications: chf Cardiac Hx: Technical Quality: Fair Contrast 1: Total Dose (mL): Contrast 2: Total Dose (mL): MEASUREMENTS (Male / Female) Normal Values 2D ECHO LV Diastolic Diameter PLAX 4.3 cm 4.2 - 5.9 / 3.9 - 5.3 cm LV Systolic Diameter PLAX 3.0 cm IVS Diastolic Thickness 1.5 cm 0.6 - 1.0 / 0.6 - 0.9 cm LVPW Diastolic Thickness 1.3 cm 0.6 - 1.0 / 0.6 - 0.9 cm LV Relative Wall Thickness 0.6 RV Internal Dim ED PLAX 4.1 cm LA Volume 89.9 cm??? 18 - 58 / 22 - 52 cm??? M-MODE Aortic Root Diameter MM 3.8 cm LA Systolic Diameter MM 2.8 cm LA Ao Ratio MM 0.7 AV Cusp Separation MM 2.3 cm DOPPLER AV Peak Velocity 126.1 cm/s AV Peak Gradient 6.4 mmHg AV Mean Velocity 97.2 cm/s AV Mean Gradient 4.0 mmHg AV Velocity Time Integral 25.9 cm LVOT Peak Velocity 110.0 cm/s LVOT Peak Gradient 4.8 mmHg LVOT Velocity Time Integral 21.5 cm MV Area PHT 2.9 cm??? Mitral E Point Velocity 63.5 cm/s Mitral A Point Velocity 73.4 cm/s Mitral E to A Ratio 0.9 MV Deceleration Time 258.8 ms MV E' Velocity 6.4 cm/s Mitral E to MV E' Ratio 9.9 TR Peak Velocity 256.3 cm/s TR Peak Gradient 26.3 mmHg Right Ventricular Systolic Press 29.4 mmHg FINDINGS Left Ventricle Moderatly increased left ventricular wall thickness. Left ventricular cavity size normal. Normal left ventricular systolic function with no obvious regional wall motion abnormalities. Left ventricular ejection fraction is estimated at 55-60 %. Right Ventricle Moderate right ventricular dilatation. Right ventricular systolic pressure within normal limits. Right Atrium Mild right atrial dilatation. Left Atrium Severly increased left atrial volume. Mildly increased left atrial area. Patent foramen ovale present . Mitral Valve Structurally normal mitral valve. No mitral stenosis. Mild mitral regurgitation. Aortic Valve Trileaflet aortic valve. No aortic valve stenosis or regurgitation. Tricuspid Valve Structurally normal tricuspid valve. Mild tricuspid regurgitation. Pulmonic Valve Trace pulmonic regurgitation. Pericardium No pericardial effusion. Aorta Normal size aortic root and proximal ascending aorta. CONCLUSIONS Normal LV systolic function Mild mitral regurgitation Previewed by: Dr. Lex Sepulveda MD (Electronically Signed) Final Date: 20 December 2022 10:36
[2022-12-20 11:06] LABS: Chol/HDL Ratio 5.82 Ratio; LDL Cholesterol,Calculated 131.8 mg/dL
--- NOTE | 2022-12-20 13:02 | CA ---
Exercise Stress Test Report Name: Andre Stinson Exam Date: 12/20/2022 09:48 Exam Location: [facility] Ht (in): 71 Wt (lb): 240 BSA: 2.28 Ordering Phys: Lex Sepulveda MD Referring Phys: HALEIGH,, Technologist: Chavez Flores Age: 52 Gender: M : 1970 Procedure CPT: Indications: CP ICD-10 Codes: Patient History: Chest pain Medications: Meds past 24 hrs: Pretest Chest Pain: STRESS TEST Geronimo Protocol Exercise Duration (min:sec): 09:[address] Depressions (mm): Angina Score: Russ Score: Resting HR (bpm): 62 Peak HR (bpm): 144 Resting BP (mmHg): 129 / 99 Peak BP (mmHg): 189 / 113 MPHR: 168 Target HR: 143 % MPHR: 86 METS: 11.1 Total Dose: Peak Dose: Atropine: Double Product: 01636 BP Response: Stress Termination: Reached target heart rate Stress Symptoms: Dyspnea, Syncope Stress Summary: ECG ANALYSIS Resting ECG: Stress ECG: CONCLUSIONS Good exercise tolerance Normal EKG in response to exercise Dr. Lex Sepulveda MD (Electronically Signed) Final Date: 20 December 2022 13:01
--- NOTE | 2022-12-20 14:25 | P.PN ---
Subjective Progress Note Date: 12/20/22 Patient is a 52-year-old male with a history of prior TIA, PFO, and steatohepatitis who presented to the ER with complaints of shortness of breath and fatigue. On arrival to the ER his vitals are within normal limits. Laboratory analysis was remarkable for carbon dioxide of 17 and anion gap of 15. Troponin was negative at less than 0.012. Chest x-ray is read as no acute process. EKG revealed no signs of acute ischemia. In the ER he was given a dose of Toradol, 2 L normal saline, and aspirin. Arrangements were made for admission. His troponins remained negative. He had no signs of significant arrhythmia on telemetry. He was seen by cardiology and underwent an exercise st ress test where he did have some symptoms but had good exercise capacity with no significant ST-T wave changes. He underwent echocardiogram which showed ejection fraction 55-60% with mild mitral regurgitation. After 2 L of IV fluid his ionized calcium was 5.3. Patient seen and examined at bedside. He reports not feeling well after his stress test. He states he initially exercise well but at the end of his stress test got very diaphoretic and lightheaded, he had shortness of breath. He then felt very nauseated requiring a dose of Zofran. Since returning from stress test he has had overwhelming fatigue and inability to stay awake. Vital signs reviewed General: nontoxic, ill-appearing, diaphoretic appears at stated age Cardiovascular: S1S2 reg, no murmur, positive posterior tibial pulse bilateral, Lungs: CTA bilateral, no rhonchi, no rales , no accessory muscle use Abdominal: soft, nontender to palpation, no guarding, no appreciable organomegaly Ext: no gross muscle atrophy, no edema b/l lower extremities, no contractures Neuro: CN II-XI grossly intact, no focal neuro deficits Psych: Alert, oriented, appropriate affect Assessment: Chest pain Fatigue PFO without right to left shunt Hypercalcemia Metabolic acidosis , resolved HLD Imaging: Echocardiogram: ejection fraction 55-60% with mild mitral regurgitation. Exercise stress test: Good exercise capacity Data Review: Labs reviewed from this morning temperature 97.6, pulse 56, respirations 18, blood pressure 120/78, O2 sat 99% on room air Laboratory analysis remarkable for chloride 111, ionized calcium 5.3, LDL 131, HDL 31 Plan: -Check intact PTH and vitamin D levels, B12, and TSH -Acute coronary syndrome has been ruled out. Stress test nonrevealing. -Continue with aspirin, statin -Due to increased neck circumference and ongoing fatigue patient would benefit from outpatient sleep study. -Stat d-dimer -During stress test patient reports that he developed some lightheadedness, diaphoresis, shortness of breath, and nausea at the end. He did have good exercise tolerance and no signs of ischemia on EKG. We'll monitor for an additional 24 hours. I have asked the nurse to get him up and walk around the unit to see if the symptoms are reproducible. This dictation was prepared using [employer] voice recognition software. Though every attempt is made to correct errors during during dictation some may still exist. Objective - Vital Signs Vital signs: Vital Signs Temp 97.6 F 12/20/22 07:00 Pulse 56 L 12/20/22 08:00 Resp 18 12/20/22 08:00 BP 120/78 12/20/22 07:00 Pulse Ox 99 12/20/22 07:00 FiO2 Intake & Output 12/19/22 12/20/22 12/20/22 18:59 06:59 18:59 Output Total 0 Balance 0 Weight 108.862 kg 108.862 kg Output: Emesis 0 Other: # Voids 1 - Labs CBC & Chem 7: 12/20/22 06:55 12/20/22 06:55 Labs: Abnormal Lab Results - Last 24 Hours (Table) 12/19/22 12/19/22 12/20/22 Range/Units 14:55 14:55 06:55 RBC 5.95 H (4.30-5.90) m/uL Lymphocytes # 0.6 L (1.0-4.8) k/uL Chloride 108 H (98-107) mmol/L Carbon Dioxide 17 L (22-30) mmol/L Glucose 121 H (74-99) mg/dL Ionized Calcium [place] 5.4 H (4.5-5.3) mg/dL Creatine Kinase 197 H (55-170) U/L Total Protein 8.6 H (6.3-8.2) g/dL LDL Cholesterol, Calc 131.8 H mg/dL HDL Cholesterol 31.80 L mg/dL 12/20/22 Range/Units 06:55 RBC (4.30-5.90) m/uL Lymphocytes # (1.0-4.8) k/uL Chloride 111 H (98-107) mmol/L Carbon Dioxide (22-30) mmol/L Glucose (74-99) mg/dL Ionized Calcium [place]ina (4.5-5.3) mg/dL Creatine Kinase (55-170) U/L Total Protein (6.3-8.2) g/dL LDL Cholesterol, Calc mg/dL HDL Cholesterol mg/dL
[2022-12-20] MEDS: TOPIRAMATE 25 MG TAB PO SCH (20:02)
[2022-12-20] MEDS: ATORVASTATIN 20 MG TAB PO SCH (20:02)
[2022-12-20] MEDS: BUTALB/APAP/CAFF 50-325-40MG TAB PO PRN (23:03)
[2022-12-21 07:11] LABS: African American GFR (CKD) >90 (>60 ml/min/1.73 sqM); Anion Gap 9 mmol/L; Blood Urea Nitrogen 11 mg/dL (9-20); Carbon Dioxide 20 mmol/L (22-30); Chloride 111 mmol/L (98-107); Glucose 96 mg/dL (74-99); Non-African American GFR(CKD) >90 (>60 ml/min/1.73 sqM); Potassium 4.1 mmol/L (3.5-5.1); Sodium 140 mmol/L (137-145)
[2022-12-21 07:32] VITALS: BP 138/92; PULSE 60; RESP 16; TEMP 97.7
--- NOTE | 2022-12-21 10:53 | P.PN ---
Subjective Progress Note Date: 12/21/22 HISTORY OF PRESENT ILLNESS: The patient is a very pleasant 52-year-old gentleman with a past medical history significant for history of TIA as well as dyslipidemia presented to the hospital complaining of chest discomfort. He describes discomfort in the left upper chest as well as the jaw. The discomfort appeared to be nonexertional. Beside that he has been more short of breath recently. No dizziness or lightheadedness and no feeling of heart racing or fluttering and no presyncope or syncope. No history of ischemic heart disease or prior revascularization. He does have severe dyslipidemia and he also was diagnosed with TIA before. He underwent further cardiac workup including EKG showing sinus mechanism was no significant ST or T-wave abnormalities and also he underwent a blood work including troponin came in to be unremarkable. He is known to have also a patent foramen ovale was treated medically and he has done well since then. The chest x-ray showed no ac kristian abnormalities The examination is remarkable for stable vital signs with regular rhythm and clear breathing sounds bilaterally and no carotid bruit and no lower extremity edema noted 12/21/2022 Patient examined this morning to bedside. Patient underwent stress testing yesterday which was negative for acute ischemia. The patient develops nausea post stress test and received Zofran. The patient states he has had no further episodes of nausea or vomiting. He denies any chest pain or pressure. Denies any shortness of breath. He states he did not sleep well yesterday because he could not get comfortable. He states he was up ambulating in his room yesterday but has not been ambulating at this morning. PHYSICAL EXAM: VITAL SIGNS: Reviewed. GENERAL: Well-developed in no acute distress. NECK: Supple. No JVD or thyromegaly LUNGS: Respirations even and unlabored. Lungs essentially clear to auscultation bilaterally. HEART: Regular rate and rhythm. S1 and S2 heard. EXTREMITIES: Normal range of motion. No clubbing or cyanosis. Peripheral pu lses intact. No lower extremity edema ASSESSMENT: Chest pain, atypical, troponin negative 3 History of TIA Hyperlipidemia PLAN: Continue current cardiac medications Increase ambulation today and assess how patient responds If no further symptoms, patient may be discharged home today from a cardiac standpoint Nurse practitioner note has been reviewed by physician. Signing provider agrees with the documented findings, assessment, and plan of care. Objective - Vital Signs Vital signs: Vital Signs Temp 97.7 F 12/21/22 07:00 Pulse 60 12/21/22 07:00 Resp 16 12/21/22 07:00 BP 138/92 12/21/22 07:00 Pulse Ox 96 12/21/22 07:00 FiO2 Intake & Output 12/20/22 12/21/22 12/21/22 18:59 06:59 18:59 Other: # Voids 3 2 - Labs CBC & Chem 7: 12/20/22 06:55 12/21/22 06:10 Labs: Abnormal Lab Results - Last 24 Hours (Table) 12/20/22 12/21/22 Range/Units 06:55 06:10 Chloride 111 H (98-107) mmol/L Carbon Dioxide 20 L (22-30) mmol/L LDL Cholesterol, Calc 131.8 H mg/dL HDL Cholesterol 31.80 L mg/dL
--- NOTE | 2022-12-21 11:20 | P.DS ---
Providers Date of admission: 12/19/22 16:06 Expected date of discharge: 12/21/22 Attending physician: Miky Brennan MD Consults: 12/19/22 16:05 Consult Physician Urgent Consulting Provider: Erlinda Meek Consult Reason/Comments: chest pain Do you want consulting provider notified?: Yes Primary care physician: Paulie Alexandra Hospital Course: Discharge Diagnosis: Chest pain, ACS ruled out Fatigue PFO without right to left shunt Hypercalcemia Metabolic acidosis , resolved HLD Hospital Course: Patient is a 52-year-old male with a history of prior TIA, PFO, and steatohepatitis who presented to the ER with complaints of shortness of breath and fatigue. On arrival to the ER his vitals are within normal limits. Laboratory analysis was remarkable for carbon dioxide of 17 and anion gap of 15. Troponin was negative at less than 0.012. Chest x-ray is read as no acute process. EKG revealed no signs of acute ischemia. In the ER he was given a dose of Toradol, 2 L normal saline, and aspirin. Arrangements were made for admission. His troponins remained negative. He had no signs of significant arrhythmia on telemetry. He was seen by cardiology and underwent an exercise stress test where he did have some symptoms but had good exercise capacity with no significant ST-T wave changes. He underwent echocardiogram which showed ejection fraction 55-60% with mild mitral regurgitation. After 2 L of IV fluid his ionized calcium was 5.3. He was again monitored over night due to symprotms after stress test and did well. He was abulating in the hallways without difficulty and was cleared by cardiology. H was determined stable to transition further evaluation to the outpatient setting. He did have hyperclacemia on 2 seperate lab draw (one outpatien and 1 inpatient) at the time of discharge PTH and Vit D levels are pending. Follow-up: Dr Sepulveda in [address] Alexandra in 1week Dr. Wallace for sleep study No medication chages at this time B12, D-dimer, TSH within normal limits. Patient seen and examined at bedside. He is feeling well this morning, but frustrated that we do not have a reason for his symptoms. He understands need for outpatient follow-up, STOP BANG 4 Vital signs reviewed and stable. General: nontoxic, no distress, appears at stated age Cardiovascular: S1S2 reg, no murmur, positive posterior tibial pulse bilateral, Lungs: CTA bilateral, no rhonchi, no rales , no accessory muscle use Abdominal: soft, nontender to palpation, no guarding, no appreciable organomegaly Ext: no gross muscle atrophy, no edema b/l lower extremities, no contractures Neuro: CN II-XI grossly intact, no focal neuro deficits Psych: Alert, oriented, appropriate affect A total of 32 minutes of time were spent preparing this complex discharge summary. Patient was discharged on 12/21/22. This dictation was prepared using [employer] voice recognition software. Though every attempt is made to correct errors during dictation some may still exist. Patient Condition at Discharge: Fair Plan - Discharge Summary New Discharge Prescriptions: Continue Rosuvastatin [Crestor] 10 mg PO HS [place]-3 Fatty Acids/Fish Oil [Fish Oil 1,000 mg Softgel] 1 cap PO DAILY Topiramate [Topamax] 25 mg PO HS Multivit-Min/FA/Lycopen/Lutein [Centrum Silver Men Tablet] 1 tab PO DAILY methylPREDNISolone Dose Pack [Medrol Dose Pack] See Taper PO DIRECTED Vitamin D3 350mcg 350 mcg PO DAILY Discharge Medication List [place]-3 Fatty Acids/Fish Oil [Fish Oil 1,000 mg Softgel] 1 cap PO DAILY 06/07/21 [History] Multivit-Min/FA/Lycopen/Lutein [Centrum Silver Men Tablet] 1 tab PO DAILY 12/19/22 [History] Rosuvastatin [Crestor] 10 mg PO HS 12/19/22 [History] Topiramate [Topamax] 25 mg PO HS 12/19/22 [History] Vitamin D3 350mcg 350 mcg PO DAILY 12/19/22 [History] methylPREDNISolone Dose Pack [Medrol Dose Pack] See Taper PO DIRECTED 12/19/22 [History] Follow up Appointment(s)/Referral(s): Paulie Alexandra MD [Primary Care Provider] - 1-2 days (Follow up lab tests including testosterone level.) Gopi Mirza MD [STAFF PHYSICIAN] - 1 Week Kayy Wallace MD [STAFF PHYSICIAN] - 1 Week (Sleep apnea evaluation.) Activity/Diet/Wound Care/Special Instructions: Activity: as tolerated Diet: Heart health Special Instructions: Return with recurrent chest pain, increasing shortness of breath, or other concerning symptoms. Your parathyroid hormone and Vit D levels are pending Please follow with Dr. Wallace for a sleep study Discharge Disposition: HOME SELF-CARE
== END 2022-12-21 12:53 | disposition home or self-care (01) ==
LOC: EC 13:19 → 6NMEDSUR 16:06
PROVIDERS: ADMIT Internal Medicine; ATTEND Internal Medicine
DX: R07.89 Other chest pain (principal); E87.20 Acidosis, unspecified; E83.52 Hypercalcemia; K75.81 Nonalcoholic steatohepatitis (NASH); R53.83 Other fatigue; Q21.12 Patent foramen ovale; E78.00 Pure hypercholesterolemia, unspecified; I34.0 Nonrheumatic mitral (valve) insufficiency; R06.02 Shortness of breath; R11.2 Nausea with vomiting, unspecified; R61 Generalized hyperhidrosis; M25.512 Pain in left shoulder; R25.2 Cramp and spasm; R42 Dizziness and giddiness; Z79.899 Other long term (current) drug therapy; Z89.021 Acquired absence of right finger(s); Z86.73 Personal history of transient ischemic attack (TIA), and cerebral infarction without residual deficits; Z82.49 Family history of ischemic heart disease and other diseases of the circulatory system
CPT/HCPCS: 96361 ×3; 96374; 99285; 36415; 93005; 93017; 93306; 85379; 82652; 83880; 80061; 80053; 80048 ×2; 84443; 82330 ×2; 82607; 82550; 83735; 84484; 85025 ×2; 85610; 85730; 83970; 71046; G0378 ×3; J1885

== ENCOUNTER → 2023-01-02 | Day surgery (SDC) | payer OTHER ==
[~2023-01-02] MED LIST changes: +ALPRAZolam 0.25 MG TAB PO PRN; +ALPRAZolam 0.5 MG TAB PO PRN; +ASPIRIN 325 MG TAB PO STA; +ATORVASTATIN 80 MG TAB PO STA; +HEPARIN SODIUM,PORCINE 10,000 UNIT in SODIUM CHLORIDE 0.9% 1,000 ML IRRIGATION PRN; +HEPARIN SODIUM,PORCINE 2,500 UNIT in SODIUM CHLORIDE 0.9% 250 ML IRRIGATION PRN; +IOPAMIDOL-370 100ML BTL INJ ONE; +ISOSORBIDE MONONITRATE ER 30 MG TAB.ER.24H PO STA; +LIDOCAINE 1% INJ 10MG/ML (5 ML VIAL-PF) SQ ONE; +NITROGLYCERIN SL TABS 0.4 MG TAB SUBLINGUAL PRN; +SODIUM CHLORIDE 0.9% 1,000 ML IV ONE; +SODIUM CHLORIDE 0.9% 1,000 ML in EMPTY BAG 1 BAG IV SCH; -SODIUM CHLORIDE 0.9% 500 ML 500 ML IV ONE; +TOPIRAMATE 25 MG TAB PO SCH; +VERAPAMIL 2.5 MG/ML 2 ML AMP ONE; +VERAPAMIL SYRINGE (5 MG/10 ML) INTRAARTER ONE; +fentaNYL (PF) 50 MCG/ML 2 ML AMP IV ONE
[2023-01-02 10:14] VITALS: RESP 16; TEMP 97.6
[2023-01-02] MEDS: MIDAZOLAM 2 MG/2 ML VIAL IV ONE ×2 (13:25→13:34)
[2023-01-02] MEDS: HEPARIN SODIUM 1,000 UN/ML (10ML VL) IV ONE ×2 (13:29→13:42)
--- NOTE | 2023-01-02 14:41 | P.CARDCATH ---
Description of Procedure: PROCEDURES PERFORMED: Left heart catheterization, bilateral coronary angiography, ultrasound guided arterial access, iFR RCA INDICATION: Unstable angina CONSENT:I have discussed the risks, benefits and alternative therapies for the above-mentioned procedure and for both sedation/analgesia as well as necessary blood product administration, if indicated, as they pertain to this patient. The patient has indicated understanding and acceptance of the risks and procedures discussed. PROCEDURE: After the risks, benefits and alternatives of the above mentioned procedure explained in detail with the patient, informed consent was obtained. Patient was taken to the catheterization lab and prepped and draped in usual fashion. Ultrasound guidance was used to assess for arterial access. 1% lidocaine was used to anesthetize the right radial artery. A 6-Pakistani sheath was placed in the right radial artery using modified Seldinger technique and ultrasound guidance. Left coronary angiography was performed with a 5-Pakistani JL 3.5 catheter and right coronary angiography was performed with a 5-Pakistani JR5 catheter in various views. A 5-Pakistani FR5 catheter was inserted into the left ventricle and pressure measurements were obtained. Given some concern of unstable angina symptoms and JUNITO 2 flow of the RCA, decision was made to perform iFR of the RCA. Heparin was given. A 6-Pakistani 45 guide was used engaged RCA. A 0.014 PressureWire was transferred into the proximal RCA and then normalized. It was then advanced 1 cm distal to the mid RCA lesion. iFR was performed and was normal at 0.99. The wire was then removed. The right radial sheath was removed and a TR band was placed with hemostasis achieved. The patient tolerated the procedure well. Patient was transported back to the post catheterization holding area in stable condition. Conscious Sedation: Patient was monitored under the direct supervision of myself for conscious sedation using Versed and fentanyl for a total duration of 22 minutes HEMODYNAMICS: Aorta: 144/89 LV: 141/3, LVEDP 10 SELECTIVE CORONARY ARTERIOGRAPHY: LEFT MAIN: The left main is a large caliber vessel which bifurcates into the LAD and circumflex. There is no significant stenosis. LEFT ANTERIOR DESCENDING CORONARY ARTERY: LAD is a large caliber vessel which wraps around to the apex. There is a very small caliber diagonal 1, nearly ramus, which appears to have a proximal 50% stenosis. The LAD has mild 30% stenosis of the mid LAD and otherwise mild luminal irregularities. The LAD is mildly tortuous. There is JUNITO 2 flow. LEFT CIRCUMFLEX CORONARY ARTERY: Left circumflex is a moderate caliber vessel with mild luminal irregularities. There is JUNITO 2 flow. RIGHT CORONARY ARTERY: The right coronary artery is a large caliber vessel which gives off a PDA and PLV branch and is the dominant vessel. There is an ostial 30% stenosis and a mid RCA 40-50% stenosis. There is JUNITO 2 flow. FINAL IMPRESSION: 1. Mild CAD as described above including 30% mid LAD, 40-50% mid RCA stenosis and otherwise mild luminal irregularities 2. JUNITO 2 flow of all coronary arteries, may be seen with microvascular dysfunction. 3. Normal left sided filling pressures 4. iFR RCA normal PLAN: 1. Aggressive risk factor modification per most recent ACC/AHA guidelines. 2. Trial of Imdur given JUNITO 2 flow and possible microvascular dysfunction.
[2023-01-02 16:31] VITALS: BP 122/83; PULSE 66
== END ==
LOC: CATHCVL 09:09
PROVIDERS: ATTEND Internal Medicine
DX: I25.110 Atherosclerotic heart disease of native coronary artery with unstable angina pectoris (principal); Q21.12 Patent foramen ovale; E78.2 Mixed hyperlipidemia; I34.0 Nonrheumatic mitral (valve) insufficiency; K76.0 Fatty (change of) liver, not elsewhere classified; Z82.49 Family history of ischemic heart disease and other diseases of the circulatory system; Z79.82 Long term (current) use of aspirin; Z79.1 Long term (current) use of non-steroidal anti-inflammatories (NSAID); Z79.899 Other long term (current) drug therapy
CPT/HCPCS: 93458; 99152; 93799; 76937; C1769 ×2; C1894; C1887; J2250; J2001; J3010; J1644; Q9967

== ENCOUNTER → 2023-03-29 | Outpatient (CLI) | payer OTHER | LOC: 3 N SLEEP 13:06 | PROVIDERS: ATTEND Internal Medicine Critical Care Medicine | DX: R06.83 Snoring (principal) ==